=== PATIENT | female | born 2000 | race Caucasian/White ===

== ENCOUNTER 2025-01-05 18:15 | Emergency (ER) | payer OTHER ==
[~2025-01-05] VITALS: Ht 177.8 cm; Wt 66.6 kg
[2025-01-05] MEDS ORDERED: NAPR-885 PO (18:30)
[2025-01-05] MEDS ORDERED: ACET-907 PO (18:30)
[2025-01-05] MEDS ORDERED: FLON1SPR (18:30)
[2025-01-05] MEDS ORDERED: PRED20TA PO ×2 (18:30→22:47)
[2025-01-05 19:49] LABS: BASO # 0.0 10^3/uL (0.0-0.2); BASO % 0.4 % (0.0-1.0); EOS # 0.0 10^3/uL (0.0-0.5); EOS % 0.2 % (0.0-3.0); LYMPH # 3.0 10^3/uL (1.5-5.0); LYMPH % 29.5 % (24.0-44.0); MONO # 1.0 10^3/uL (0.0-0.8); MONO % 10.0 % (2.0-8.0); NEUTROPHILS # 6.1 10^3/uL (1.5-8.5); NEUTROPHILS % 59.6 % (36.0-66.0); PLATELET COUNT, AUTOMATED 306 10^3/uL (150-450)
[2025-01-05 19:55] LABS: ERYTHROCYTE SEDIMENTATION RATE 26 mm/hr (0-20)
[2025-01-05 20:14] LABS: HCG, SERUM QUALITATIVE NEGATIVE (NEGATIVE)
[2025-01-05 20:15] LABS: C REACTIVE PROTEIN QUANTITATIV 1.70 MG/DL (<1.0); CALCIUM LEVEL 9.4 MG/DL (8.5-10.1); CARBON DIOXIDE LEVEL 27 MMOL/L (20-31); CHLORIDE LEVEL 104 MMOL/L (98-107); CREATININE FOR GFR 0.65 MG/DL (0.55-1.30); GLOMERULAR FILTRATION RATE > 90.0 (>60); POTASSIUM SERUM 3.8 MMOL/L (3.5-5.1); SODIUM LEVEL 142 MMOL/L (136-145)
[2025-01-05] MEDS: NAPROXEN 250 MG TAB PO ONE (20:37)
[2025-01-05] MEDS: ACETAMINOPHEN *IV* 1,000 MG in IV 1 EA IV ONE (21:46)
[2025-01-05] MEDS: NS (Normal Saline) 0.9% 1,000 ML IV ONE (21:47)
[2025-01-05 22:43] LABS: MONO SCRN POSITIVE (NEGATIVE)
[2025-01-05] MEDS ORDERED: KETO-204 PO (22:47)
[2025-01-05] MEDS ORDERED: CEFD1CAP9 PO (22:47)
[2025-01-05] MEDS: PERCOCET 5MG/325MG TAB PO ONE (23:05)
[2025-01-05] MEDS: LIDOCAINE 1% SDV 5 ML VIAL DILUENT ONE (23:05)
[2025-01-05 23:08] VITALS: BP 108/72; TEMP 98.1; O2SAT 100
== END 2025-01-05 23:18 | disposition home or self-care (01) ==
LOC: M ED 18:15
DX: B27.80 Other infectious mononucleosis without complication (principal); F17.290 Nicotine dependence, other tobacco product, uncomplicated; F12.10 Cannabis abuse, uncomplicated; F10.10 Alcohol abuse, uncomplicated; Z79.1 Long term (current) use of non-steroidal anti-inflammatories (NSAID); Z79.2 Long term (current) use of antibiotics; Z79.52 Long term (current) use of systemic steroids; Z79.899 Other long term (current) drug therapy
CPT/HCPCS: 80048; 84703; 85025; 85652; 86140; 86308; 96365; 96366; 96372; 96375; 99284; J0131; J0696; J1100